=== PATIENT | female | born 1935 ===

== ENCOUNTER → 2021-10-15 | Outpatient (CLI) | payer MEDICARE ==
[~2021-10-15] MED LIST: ACET325T38 PO; ACET325T49 PO; AMLO-251 PO; ASPI-1238 PO; CARV12.52 PO; CARV6.252 PO; CHOL200074 PO; CITA20TA9 PO; DORZ10DR8 OU; ENXP30I.3 SC; FURO-125 PO; HYDR-3923 PO; INSU100I10 SQ; ISOS60TA63 PO; LACT20SO2 PO; LOSA100T57 PO; LOTE5DRO8 OD; ONDA4TAB11 PO; PANT40TA52 PO; SIMV20TA26 PO; SNN187T PO; TRAZ-227 PO
[2021-10-15 23:04] LABS: BASOPHILS % (AUTO) 0 % (0-10); EOSINOPHILS # (AUTO) 0.2 10^3/uL (0.0-0.3); EOSINOPHILS % (AUTO) 4 % (0-10); HEMATOCRIT 28 % (35-52); HEMOGLOBIN 8.5 g/dL (11.5-16.0); LYMPHOCYTES # (AUTO) 1.3 10^3/uL (1.0-4.0); LYMPHOCYTES % (AUTO) 22 % (12-44); MEAN CORPUSCULAR HEMOGLOBIN 29 pg (25-34); MEAN CORPUSCULAR HGB CONC 30 g/dL (32-36); MEAN CORPUSCULAR VOLUME 95 fL (80-99); MEAN PLATELET VOLUME 11.7 fL (9.0-12.2); MONOCYTES # (AUTO) 0.8 10^3/uL (0.0-1.0); MONOCYTES % (AUTO) 15 % (0-12); NEUTROPHILS # (AUTO) 3.4 10^3/uL (1.8-7.8); NEUTROPHILS % (AUTO) 60 % (42-75); PLATELET COUNT 227 10^3/uL (130-400); WHITE BLOOD COUNT 5.7 10^3/uL (4.3-11.0)
[2021-10-15 23:15] LABS: ALBUMIN 2.8 GM/DL (3.2-4.5); POTASSIUM 3.6 MMOL/L (3.6-5.0)
[2021-10-15 23:18] LABS: TOTAL PROTEIN 4.4 GM/DL (6.4-8.2)
[2021-10-15 23:20] LABS: BILIRUBIN,TOTAL 0.4 MG/DL (0.1-1.0)
[2021-10-15 23:21] LABS: CREATININE SERUM 2.84 MG/DL (0.60-1.30)
== END ==
LOC: LAB 22:00
PROVIDERS: ATTEND Internal Medicine
DX: I50.9 Heart failure, unspecified (principal); R41.82 Altered mental status, unspecified
CPT/HCPCS: 36415; 80053; 85025